=== PATIENT | male | born 1935 | race Caucasian/White ===

== ENCOUNTER 2016-09-06 19:23 | Observation (INO) | payer OTHER ==
[~2016-09-06] VITALS: Ht 172.7 cm; Wt 75.6 kg
[~2016-09-06 19:23] MED LIST: ADV25050 INH; ALEN70TA30 PO; ASPI81TA3 PO; ATOR80TA75 PO; CARV3.1260 PO; FURO20TA3 PO; MULT-552 PO; NIT4 SL; PANT40TA4 PO; PRED10TA PO; TAMS0.4C2 PO; TIOT18CA IH
[2016-09-06 20:05] LABS: ADD SCAN DIFF NO
[2016-09-06 20:06] LABS: BASOPHILS % 0.6 % (0.0-2.0); EOSINOPHILS # 0.1 10^3/ul (0.0-0.5); HEMATOCRIT 36.9 % (42.0-52.0); HEMOGLOBIN 11.7 g/dl (14.0-18.0); LYMPHOCYTES # 0.8 10^3/ul (0.8-2.9); LYMPHOCYTES % 16.3 % (15.0-51.0); MEAN CORPUSCULAR HEMOGLOBIN 29.4 pg (29.0-33.0); MEAN CORPUSCULAR HGB CONC 31.7 g/dl (32.0-37.0); MEAN CORPUSCULAR VOLUME 92.7 fl (82.0-101.0); MONOCYTE # 0.4 10^3/ul (0.3-0.9); MONOCYTES % 8.1 % (0.0-11.0); NEUTROPHIL # 3.7 10^3/ul (1.6-7.5); NEUTROPHILS % 72.6 % (39.0-77.0); PLATELET COUNT 120 10^3/UL (140-415); RED BLOOD COUNT 3.98 10^6/ul (4.70-6.10); RED CELL DISTRIBUTION WIDTH 14.2 % (11.5-14.5)
[2016-09-06 20:23] LABS: INR 1.05; PARTIAL THROMBOPLASTIN TIME 31.9 Sec (25.0-35.0); PROTIME 13.7 Sec (12.2-14.2); PT RATIO 1.1
[2016-09-06 20:27] LABS: ANION GAP 8 (8-16); BLOOD UREA NITROGEN 24 mg/dl (7-20); CALCIUM 9.6 mg/dl (8.4-10.2); CARBON DIOXIDE 34 mmol/L (21-31); CHLORIDE 104 mmol/L (97-110); CREATININE 1.04 mg/dl (0.61-1.24); GLUCOSE 128 mg/dl (70-220); POTASSIUM 4.3 mmol/L (3.5-5.1); SODIUM 142 mmol/L (135-144)
[2016-09-06] MEDS ORDERED: ASPIRIN 81 MG TAB PO ONE (20:30)
--- NOTE | 2016-09-06 20:36 | RADRPT ---
PROCEDURE: XR Chest. CLINICAL INDICATION: Chest pain TECHNIQUE: 2 frontal views of the chest were obtained COMPARISON: 02/13/2015 FINDINGS: The heart is not enlarged. Dual chamber cardiac pacemaker again seen. Calcification in the aortic arch. There is minimal prominence of the lung interstitium likely minimal chronic changes. There is no pleural effusion or pneumothorax. IMPRESSION: No acute disease. RPTAT: [facility]JES .Justin Lewis MD, MD Date Time Electronically viewed and signed by .Justin Lewis MD, on 09/06/2016 20:36 .S/
[2016-09-06 20:40] LABS: TROPONIN-I < 0.012 ng/ml (0.00-0.12)
[2016-09-06 21:05] LABS: ADD UMIC NO; UR BILIRUBIN (Dip) NEGATIVE (NEGATIVE); UR BLOOD (Dip) NEGATIVE (NEGATIVE); UR CLARITY CLEAR (CLEAR); UR COLOR LT. YELLOW (YELLOW); UR GLUCOSE (Dip) NEGATIVE (NEGATIVE); UR KETONES (Dip) NEGATIVE (NEGATIVE); UR LEUKOCYTE ESTERASE (Dip) NEGATIVE (NEGATIVE); UR NITRITE (Dip) NEGATIVE (NEGATIVE); UR TOTAL PROTEIN (Dip) NEGATIVE (NEGATIVE); UR UROBILINOGEN (Dip) 0.2 E.U./dL (0.1-1.0)
[2016-09-06] MEDS ORDERED: TAMS0.4C2 PO (21:09)
[2016-09-06] MEDS ORDERED: FURO20TA3 PO (21:09)
[2016-09-06] MEDS ORDERED: PANT40TA4 PO (21:10)
[2016-09-06] MEDS ORDERED: FINA5TAB4 PO (21:10)
[2016-09-06] MEDS ORDERED: AMIO200T2 PO (21:11)
[2016-09-06] MEDS ORDERED: MAGN400T28 PO (21:11)
[2016-09-06] MEDS ORDERED: CLOP75TA4 PO (21:12)
[2016-09-06] MEDS ORDERED: CARV3.1260 PO (21:13)
[2016-09-06] MEDS ORDERED: ASPI-664 PO (21:15)
[2016-09-06] MEDS ORDERED: BUDE6HFA INHALATION (21:15)
[2016-09-06] MEDS ORDERED: TIOT18CA INHALATION (21:16)
[2016-09-06] MEDS ORDERED: NIT4 SL (21:16)
[2016-09-06] MEDS ORDERED: SOD CHLORIDE 0.9% 250 ML IV STA (21:17)
[2016-09-06] MEDS ORDERED: MECLIZINE 12.5 MG TAB PO ONE (22:30)
[2016-09-06] MEDS ORDERED: CALCITONIN SALMON 400 UNITS INJ SC ONE (22:30)
[2016-09-06] MEDS ORDERED: ACETAMINOPHEN 325 MG TAB PO PRN ×2 (23:30)
[2016-09-06] MEDS ORDERED: NITROGLYCERIN (SL) 0.4 MG TAB SL PRN (23:30)
[2016-09-06] MEDS ORDERED: MAGNESIUM HYDROXIDE 30ML CUP PO PRN (23:30)
[2016-09-06] MEDS ORDERED: morphine 2 MG INJ IV PRN (23:30)
[2016-09-06] MEDS ORDERED: NACL 0.9% 3 ML SYG IV SCH (23:30)
[2016-09-06] MEDS ORDERED: ONDANSETRON 4 MG INJ IV PRN ×2 (23:30)
[2016-09-06] MEDS ORDERED: BISACODYL 10 MG SUPP PR PRN (23:30)
[2016-09-06] MEDS ORDERED: DOCUSATE SODIUM 100 MG CAP PO PRN (23:30)
[2016-09-06] MEDS ORDERED: ALBUTEROL/IPRATROPIUM (NEB) 3 ML AMP HHN PRN (23:30)
--- NOTE | 2016-09-06 23:51 | ERD ---
ER Documentation Chief Complaint Date/Time DATE: 09/06/16 TIME: 23:45 Chief Complaint weak/dizzy x 45 minutes, "feel like I'm going to " +orthostatics HPI 81-year-old male with a history of CAD, peripheral artery disease, pacemaker placement, and diabetes presenting with symptoms of feeling like he is going to . He states that he was eating dinner when he stood up and was walking around and suddenly felt like his whole body was about to shut down. He denies feeling any specific dizziness, chest pain, shortness of breath, diaphoresis, or focal weakness or numbness. He denies any associated headache or vision disturbance. He states the episode lasted a few minutes and self resolved after sitting. Then his symptoms started again at rest. Currently he feels back to his normal self. ROS All systems reviewed and are negative except as per history of present illness. Medications Home Meds Reported Medications Nitroglycerin* (Nitrostat*) 0.4 Mg Tab.subl, 0.4 MG SL Q5MIN Y for CHEST PAIN, BOTTLE 09/06/16 Tiotropium [place]* (Spiriva*) 18 Mcg Cap.w.dev, 1 CAP INHALATION DAILY, #30 CAP 09/06/16 Aspirin* (Aspirin* EC) 81 Mg Tablet.dr, 81 MG PO DAILY, TAB 09/06/16 Budesonide-Formoterol Fumarate* (Symbicort*) 160-4.5 Hfa.aer.ad, 2 PUFF INHALATION BID, #1 EACH 09/06/16 Carvedilol* (Carvedilol*) 3.125 Mg Tablet, 1.56 MG PO BID, #60 TAB TAKE 1/2 TABLET 09/06/16 Clopidogrel Bisulfate* (Clopidogrel Bisulfate*) 75 Mg Tablet, 75 MG PO DAILY, # 30 TAB 09/06/16 Magnesium Oxide* (Magnesium Oxide*) 400 Mg Tablet, 400 MG PO DAILY, TAB 09/06/16 Amiodarone Hcl* (Amiodarone Hcl*) 200 Mg Tablet, 200 MG PO DAILY, #30 TAB 09/06/16 Finasteride* (Finasteride*) 5 Mg Tablet, 5 MG PO DAILY, TAB 09/06/16 Pantoprazole* (Pantoprazole*) 40 Mg Tablet.dr, 40 MG PO AC BREAKFAST, TAB 09/06/16 Tamsulosin Hcl* (Tamsulosin Hcl*) 0.4 Mg Cap.er.24h, 0.4 MG PO BID, CAP 09/06/16 Furosemide* (Furosemide*) 20 Mg Tablet, 20 MG PO Q OTHER DAY, #60 TAB 09/06/16 Discontinued Reported Medications Multivitamins* (Once Daily*) 1 Tab Tablet, 1 TAB PO DAILY, TAB 02/13/15 Aspirin* (Aspirin* Chew) 81 Mg Tab.chew, 81 MG PO DAILY, TAB.CHEW 02/13/15 Carvedilol* (Carvedilol*) 3.125 Mg Tablet, 3.125 MG PO BID, TAB 02/13/15 Nitroglycerin* (Nitrostat*) 0.4 Mg Tab.subl, 0.4 MG SL Q5MIN Y for CHEST PAIN, BOTTLE 02/13/15 Alendronate Sodium* (Fosamax*) 70 Mg Tablet, 70 MG PO Q7D, TAB 02/13/15 Tiotropium [place]* (Spiriva*) 18 Mcg Cap.w.dev, 1 INH IH DAILY, EA 02/13/15 Salmeterol Xinaf/Fluticasone* (Advair*) 250-50 Diskus Inhaler, 1 INH INH BID, INH 02/13/15 Pantoprazole* (Pantoprazole*) 40 Mg Tablet.dr, 40 MG PO BID, TAB 02/13/15 Tamsulosin Hcl* (Tamsulosin Hcl*) 0.4 Mg Cap.er.24h, 0.8 MG PO HS, CAP 02/13/15 Atorvastatin* (Atorvastatin*) 80 Mg Tablet, 80 MG PO HS, TAB 02/13/15 Furosemide* (Furosemide*) 20 Mg Tablet, 20 MG PO DAILY, TAB 02/13/15 Discontinued Scripts Prednisone* (Prednisone*) 10 Mg Tab, 10 MG PO DAILY, #30 TAB Take four by mouth (40mg) every morning x 3 days, then 3 (30mg) x 3 days, then 2 (20mg) x 3 days, then 1 (10mg) x 3 days, then discontinue Prov:TREMAINE COBIAN M.D. 02/15/15 Allergies Allergies: Coded Allergies: No Known Allergy (Unverified , 09/06/16) PMhx/Soc History of Surgery: Yes (lumbar surery, hernia repair, pacemaker placement) Anesthesia Reaction: No Hx Neurological Disorder: No Hx Respiratory Disorders: Yes (copd) Hx Cardiac Disorders: Yes (afib, chf, cad) Hx Psychiatric Problems: No Hx Miscellaneous Medical Probl: Yes (bph, pad) Hx Alcohol Use: No Hx Substance Use: No Hx Tobacco Use: No Smoking Status: Never smoker FmHx Family History: No diabetes Physical Exam Vitals Vital Signs Date Time Temp Pulse Resp B/P Pulse Ox O2 Delivery O2 Flow Rate FiO2 09/06/16 22:12 50 17 133/70 100 Nasal Cannula 4.0 09/06/16 20:52 50 15 139/85 98 Nasal Cannula 2.0 09/06/16 19:45 Nasal Cannula 4 09/06/16 19:31 98.1 60 18 114/73 100 Physical Exam Const: Well-appearing, no distress, nontoxic Head: Atraumatic Eyes: Normal Conjunctiva, PERRLA, EOMI ENT: Normal External Ears, Nose and Mouth. Poor dentition Neck: Full range of motion. No JVD. No meningismus. Resp: Clear to auscultation bilaterally Cardio: Regular rate and rhythm, no murmurs. 2+ radial pulses bilaterally. 1+ DP and PT pulses in bilateral lower extremities. Abd: Soft, non tender, non distended. Normal bowel sounds Skin: No petechiae or rashes Back: No midline or flank tenderness Ext: No cyanosis, or edema Neur: Awake and alert and oriented 3, cranial nerves intact, strength and sensations intact in all 4 extremities, normal study gait Psych: Normal Mood and Affect Result Diagram: 09/06/16195409/06/161954 Results 24 hrs Laboratory Tests Test 09/06/16 19:55 09/06/16 20:45 White Blood Count 5.010^3/ul Red Blood Count 3.9810^6/ul Hemoglobin 11.7g/dl Hematocrit 36.9% Mean Corpuscular Volume 92.7fl Mean Corpuscular Hemoglobin 29.4pg Mean Corpuscular Hemoglobin Concent 31.7g/dl Red Cell Distribution Width 14.2% Platelet Count 02380^3/UL Mean Platelet Volume 11.0fl Neutrophils % 72.6% Lymphocytes % 16.3% Monocytes % 8.1% Eosinophils % 2.0% Basophils % 0.6% Nucleated Red Blood Cells % 0.0/100WBC Neutrophils # 3.710^3/ul Lymphocytes # 0.810^3/ul Monocytes # 0.410^3/ul Eosinophils # 0.110^3/ul Basophils # 0.010^3/ul Nucleated Red Blood Cells # 0.010^3/ul Prothrombin Time 13.7Sec Prothrombin Time Ratio 1.1 INR International Normalized Ratio 1.05 Activated Partial Thromboplast Time 31.9Sec Sodium Level 142mmol/L Potassium Level 4.3mmol/L Chloride Level 104mmol/L Carbon Dioxide Level 34mmol/L Anion Gap 8 Blood Urea Nitrogen 24mg/dl Creatinine 1.04mg/dl Glucose Level 128mg/dl Calcium Level 9.6mg/dl Troponin I < 0.012ng/ml Urine Color LT. YELLOW Urine Clarity CLEAR Urine pH 5.5 Urine Specific [place] 1.010 Urine Ketones NEGATIVE Urine Nitrite NEGATIVE Urine Bilirubin NEGATIVE Urine Urobilinogen 0.2 E.U./dL Urine Leukocyte Esterase NEGATIVE Urine Hemoglobin NEGATIVE Urine Glucose NEGATIVE% Urine Total Protein NEGATIVE Current Medications Medications (Trade) Dose Ordered Sig/Ilana Route PRN Reason Start Time Stop Time Status Last Admin Dose Admin Aspirin 162 mg 162 mg ONCE ONCE PO 09/06/16 20:30 09/06/16 20:31 DC 09/06/16 20:36 Sodium Chloride (NS) 250 ml @ 250 mls/hr Q1H STAT IV 09/06/16 21:17 09/06/16 22:16 DC 09/06/16 21:24 Meclizine HCl (Antivert) 25 mg ONCE ONCE PO 09/06/16 22:30 09/06/16 22:31 DC 09/06/16 22:25 Calcitonin [place] (Miacalcin Inj) 300 units BID ONCE SC 09/06/16 22:30 09/06/16 22:30 DC Amiodarone HCl (Cordarone) 200 mg DAILY PO 09/07/16 09:00 UNV Aspirin (Halfprin) 81 mg DAILY PO 09/07/16 09:00 UNV Carvedilol (Coreg) 1.56 mg BID PO 09/07/16 09:00 UNV Clopidogrel Bisulfate (plaVIX) 75 mg DAILY PO 09/07/16 09:00 UNV Finasteride (Proscar) 5 mg DAILY PO 09/07/16 09:00 UNV Magnesium Oxide (Mag-Ox 400) 400 mg DAILY PO 09/07/16 09:00 UNV Pantoprazole (Protonix Tab) 40 mg AC BREAKFAST PO 09/07/16 07:00 UNV Tamsulosin HCl (Flomax) 0.4 mg BID PO 09/07/16 09:00 UNV Miscellaneous Information 2 puff BID INHALATION 09/07/16 09:00 UNV IV Flush (NS 3 ml) 3 ml PER PROTOCOL IV 09/06/16 23:30 UNV Ondansetron HCl (Zofran Inj) 4 mg Q6H PRN IV NAUSEA AND/OR VOMITING 09/06/16 23:30 UNV Nitroglycerin (Nitroglycerin (Sl Tab) 0.4 Mg) 1 tab Q5M PRN SL CHEST PAIN 09/06/16 23:30 UNV Acetaminophen (Tylenol Tab) 650 mg Q6H PRN PO PAIN LEVEL 1-3 OR FEVER 09/06/16 23:30 UNV Acetaminophen/ Hydrocodone Bitart ([place] (5/325)) 1 tab Q6H PRN PO PAIN LEVEL 4-6 09/06/16 23:30 UNV Morphine Sulfate (morphine) 2 mg Q4H PRN IV PAIN LEVEL 7-10 09/06/16 23:30 UNV Docusate Sodium (Colace) 100 mg Q12H PRN PO CONSTIPATION 09/06/16 23:30 UNV Magnesium Hydroxide (Milk Of Mag) 30 ml DAILY PRN PO CONSTIPATION 09/06/16 23:30 UNV Bisacodyl (Dulcolax Supp) 10 mg DAILY PRN [place] CONSTIPATION 09/06/16 23:30 UNV Famotidine (Pepcid) 20 mg Q12 PO 09/07/16 09:00 UNV Ondansetron HCl (Zofran Inj) 4 mg ER BRIDGE PRN IV NAUSEA AND/OR VOMITING 09/06/16 23:30 09/07/16 23:29 Acetaminophen (Tylenol Tab) 650 mg ER BRIDGE PRN PO MILD PAIN/FEVER 09/06/16 23:30 09/07/16 23:29 Albuterol/ Ipratropium (Duoneb) 3 ml Q4H RESP THERAPY PRN HHN SHORTNESS OF BREATH 09/06/16 23:30 UNV Procedures/MDM EKG: Rate/Rhythm: Atrial paced beats QRS, ST, T-waves: Right bundle branch block, no changes consistent w/ acute ischemia Impression: No evidence of ischemia or arrhythmia CT head pending Chest x-ray shows no acute abnormalities Labs show no significant abnormalities MDM The patient presented after a near syncopal episode. Differential includes but is not limited to cardiac arrhythmia or ischemia, pulmonary embolism, vasovagal syncope, situational syncope, dehydration with orthostatic hypotension , hemorrhage, sepsis, stroke ,ICH, hypoglycemia. I have a low suspicion for seizure, stroke, or serious head injury. Blood sugar was normal. EKG showed no significant arrhythmia or ischemia. Labs were unremarkable. Chest Xray showed no acute abnormalities. There is no evidence of pacemaker malfunction. However , given the patients medical history and risk factors, an occult etiology cannot be ruled out. I do not believe patient is safe for discharge and will need admission for telemetry monitoring and further workup. CT head was ordered per the admitting doctors request and is pending Accepting Care Team: Current data and ongoing care discussed. Time: Time of admission Primary Provider: Keke Consulting: none Outstanding Data: CT head Departure Diagnosis: Primary Impression: Acute weakness Condition: Fair ASHWIN KYLE MD Sep 06, 2016 23:51
--- NOTE | 2016-09-06 23:57 | RADRPT ---
AMENDMENT: 09/06/2016 11:58:33 PM Samantha Hadley M.D Addendum: Mild chronic microvascular ischemic disease and age appropriate volume loss . RPTAT: [facility] [place]EDURE: CT Brain without contrast. CLINICAL INDICATION: Dizziness TECHNIQUE: A CT of the brain was performed on a GE [id number] 64-slice CT scanner utilizing axial imaging from the skull base through the vertex without IV contrast. Multiplanar reformatted images were made. Images were reviewed on a PACS workstation. The CTDIvol is 43.77 mGy and the DLP is 720 .23 mGycm. One of the following 3 dose reduction techniques were used: Automated exposure control; adjustment of the mA and/or kV according to patient size; or use of iterative reconstruction technique. COMPARISON: None FINDINGS: There is no intracranial hemorrhage, mass effect, or midline shift. No extra-axial fluid collection is seen. The ventricles and sulci are age appropriate. Mild diffuse volume loss is present. Mild vascular calcifications are present of the intracranial internal mild decreased attenuation is prese nt in the bilateral subcortical white matter, bilateral centrum semiovale, and bilateral compatible with mild chronic microvascular ischemic disease. The visualized scalp and calvarium are normal. The bilateral orbits demonstrate prior lens replacem ent. The bilateral paranasal sinuses demonstrate mild chronic mucoperiosteal disease in the bilater al ethmoid maxillary and frontal sinuses. The bilateral mastoid air cells are clear. IMPRESSION: 1. No evidence of acute intracranial hemorrhage, infarcts, or acute intracranial pathology. 2. Mild vascular ischemic disease and age appropriate volume loss. 3. No evidence for acute intracranial pathology. .Samantha Hadley MD, MD Date Time Electronically viewed and signed by .Samantha Hadley MD, MD on 09/06/2016 23:58 .C/
[2016-09-07] VITALS (14 sets, daily range): BP systolic 112–135; BP diastolic 57–77; PULSE 49–60; RESP 16–20; Ht 172.7 cm; Wt 75.6 kg
[2016-09-07 03:45] LABS: CREATINE KINASE 30 IU/L (23-200)
[2016-09-07 03:57] LABS: CK-MB 1.28 ng/ml (0.0-2.4); TROPONIN-I < 0.012 ng/ml (0.00-0.12)
[2016-09-07 06:53] LABS: ADD SCAN DIFF NO
[2016-09-07 06:55] LABS: ABNORMAL IP MESSAGE 1; BASOPHILS % 0.4 % (0.0-2.0); EOSINOPHILS % 0.4 % (0.0-7.0); HEMOGLOBIN 10.9 g/dl (14.0-18.0); LYMPHOCYTES # 0.9 10^3/ul (0.8-2.9); LYMPHOCYTES % 15.5 % (15.0-51.0); MEAN CORPUSCULAR HEMOGLOBIN 28.8 pg (29.0-33.0); MEAN CORPUSCULAR HGB CONC 30.3 g/dl (32.0-37.0); MEAN PLATELET VOLUME 11.7 fl (7.4-10.4); MONOCYTE # 0.4 10^3/ul (0.3-0.9); MONOCYTES % 6.4 % (0.0-11.0); NEUTROPHIL # 4.2 10^3/ul (1.6-7.5); NEUTROPHILS % 76.9 % (39.0-77.0); PLATELET COUNT 97 10^3/UL (140-415); RED BLOOD COUNT 3.79 10^6/ul (4.70-6.10); RED CELL DISTRIBUTION WIDTH 14.1 % (11.5-14.5); WHITE BLOOD COUNT 5.5 10^3/ul (4.8-10.8)
[2016-09-07] MEDS: PANTOPRAZOLE (EC) 40 MG TAB PO SCH (07:21)
[2016-09-07 07:46] LABS: CREATINE KINASE 27 IU/L (23-200)
[2016-09-07 08:05] LABS: CK-MB 1.57 ng/ml (0.0-2.4); TROPONIN-I < 0.012 ng/ml (0.00-0.12)
[2016-09-07 08:07] LABS: ALBUMIN 3.9 g/dl (3.3-4.9); ALBUMIN/GLOBULIN RATIO 1.62; BILIRUBIN,INDIRECT 0.2 mg/dl (0-1.1); BILIRUBIN,TOTAL 0.2 mg/dl (0.2-1.3); CALCIUM 9.2 mg/dl (8.4-10.2); CREATININE 0.92 mg/dl (0.61-1.24); MAGNESIUM 2.2 mg/dl (1.7-2.5); POTASSIUM 4.1 mmol/L (3.5-5.1); TOTAL PROTEIN 6.3 g/dl (6.1-8.1)
[2016-09-07] MEDS ORDERED: AMIODARONE 200 MG TAB PO SCH (09:00)
[2016-09-07] MEDS: MAGNESIUM OXIDE 400 MG TAB PO SCH (09:11)
[2016-09-07] MEDS: TAMSULOSIN (SR) 0.4 MG CAP PO SCH ×2 (09:11→20:51)
[2016-09-07] MEDS: FAMOTIDINE 20 MG TAB PO SCH ×2 (09:11→20:51)
[2016-09-07] MEDS: FINASTERIDE 5 MG TAB PO SCH (09:11)
[2016-09-07] MEDS: CLOPIDOGREL 75 MG TAB PO SCH (09:11)
[2016-09-07] MEDS: ASPIRIN (EC) 81 MG TAB PO SCH (09:11)
[2016-09-07] MEDS: SALMETEROL/FLUTICASONE 250/50 INHA INH SCH ×2 (10:33→20:51)
--- NOTE | 2016-09-07 10:56 | RADRPT ---
PROCEDURE: Carotid ultrasound CLINICAL INDICATION: Syncope, carotid bruits TECHNIQUE: Ba scale, color doppler, spectral doppler ultrasound of the bilateral carotid and ifrah tebral arteries. This study indirectly references the measurement of the distal ICA diameter as the denominator for s tenosis measurement. Validated velocity measurements with angiographic measurements, velocity criter ia are extrapolated from diameter data as defined by: *Cartoid artery stenosis: ba-scale and Doppl er US diagnosis. Society of Radiologists in Ultrasound Consensus Conference. Radiology 2003; 229: 34 0-346. SRU Consensus Conference Criteria for the Diagnosis of Carotid Artery Stenosis* Degree of Stenosis, % ICA PSV, cm/sec Plaque Estimate, % ICA/CCA PSV Ratio Normal <125 None <2.0 <50 <125 <50 <2.0 50 69 125-230 >50 2.0-4.0 >70 but less than near occlusion >230 >50 <4.0 Near occlusion High, low, or undetectable Visible Variable Total occlusion Undetectable Visible, no detectable lumen Not applicable COMPARISON: No prior studies are available for comparison. FINDINGS: Location Right CCA90 cm/sec Prox ICA 64 cm/sec Mid ICA62 cm/sec Dist ICA92 cm/sec ECA62 cm/sec ICA/CCA1.2 Left CCA72 cm/sec Prox ICA 83 cm/sec Mid ICA70 cm/sec Dist ICA71 cm/sec ZQK990 cm/sec ICA/CCA1.2 Plaque burden: Minimal plaque involving both internal carotid arteries without significant stenosis. Antegrade flow is seen within the vertebral arteries bilaterally. IMPRESSION: No evidence of a hemodynamically significant carotid stenosis. RPTAT: AADD .Armin Collins MD, MD Date Time Electronically viewed and signed by .Armin Collins MD, MD on 09/07/2016 10:56 .B/
--- NOTE | 2016-09-07 16:13 | HP ---
DATE OF ADMISSION: 09/06/2016 PRIMARY CARE PHYSICIAN: Dr. Page OUTPATIENT HEEL SEAM RUBBER: Dr. Prieto. CHIEF COMPLAINT ON ADMISSION: Feeling faint. HISTORY OF PRESENT ILLNESS: This is an 81-year-old male with history of cardiomyopathy and congesti ve heart failure, last ejection fraction approximately 25%, COPD and emphysema, benign prostatic hyp ertrophy, hyperlipidemia, peripheral vascular disease, osteoporosis, nonobstructive mild coronary ar venus disease status post angiogram in 2014, sick sinus syndrome, status post pacemaker who presented to the emergency department with complaint of occasionally feeling faint. The patient reports that this started yesterday. He would just occasionally feel like he is almost sedated with the onset o f generalized weakness. His lower extremity became very weak. It would last for a few seconds and then pass. He denies chest pain. He denies nausea, vomiting. He denies blurry vision. He denies syncopal episode or loss of consciousness. He keeps saying that he feels like he is "dying." He oden d a similar episode today while on telemetry, and at that time that, when the nurse was doing his as sessment asked telemetry, the patient was noted to have a heart rate down to 49 with no pacer spikes . The patient also reports that this past Monday he had an oral procedure and is on penicillin sinc e then. He has no previous allergy to penicillin as far as we know. In the emergency department, matt brunson had a CAT scan of the head which was negative for acute findings. Subsequently, carotid ultrasoun d was done which was negative. He has been monitored on telemetry. The only concern is when his bl ood pressure does go as low as 49 there is no pacer spikes. The patient is much more comfortable cu rrently. He has been also complaining on and off of his lips being numb which most likely has to do with his gum disease and misfit dentures. Cardiology will be seeing the patient. ALLERGIES: NO KNOWN ALLERGIES. PAST MEDICAL HISTORY: 1. Nonobstructive mild coronary artery disease status post angiogram in September of 2014. 2. Cardiomyopathy, congestive heart failure, chronic systolic dysfunction with EF of 25%. 3. Chronic obstructive pulmonary disease and emphysema. 4. Benign prostatic hypertrophy. 5. Hyperlipidemia. 6. Peripheral vascular disease. 7. Osteoporosis. 8. Sick sinus syndrome status post pacemaker placement. PAST SURGICAL HISTORY: 1. Status post pacemaker placement approximately 6 years ago. 2. Status post lumbar laminectomy x3. 3. Status post bilateral hernia repair, inguinal, x2. 4. Status post tonsillectomy remotely. 5. Status post vein stripping, right lower extremity. SOCIAL HISTORY: The patient lives with his . He does not drink alcohol. He quit smoking 30 ye ars ago. He smoked for 15 years, roughly a pack a day. OUTPATIENT MEDICATIONS: 1. Flomax 0.4 mg p.o. b.i.d. 2. Spiriva 1 cap inhaled daily. 3. Plavix 75 mg p.o. daily. 4. Amiodarone 200 mg p.o. daily. 5. Carvedilol 1.56 p.o. b.i.d. 6. Nitrostat 0.4 mg sublingual every 5 p.r.n. chest pain. 7. Aspirin 81 mg p.o. daily. 8. Furosemide 20 mg p.o. every other day. 9. Symbicort 160/4.5, two puffs inhaled twice daily. 10. Magnesium oxide 400 mg p.o. daily. 11. Pantoprazole 40 mg p.o. q. a.c. 12. Finasteride 5 mg p.o. daily. 13. Penicillin 500 mg p.o. q. 6 hours for a total of 20 days from what the patient is reporting. Matt e did start it approximately 5 days ago. REVIEW OF SYSTEMS: As per HPI. PHYSICAL EXAMINATION: VITAL SIGNS: Temperature is 98.4, heart rate has been varying around 49 so far, respiratory rate of 19, blood pressure 116/63 while the patient is lying, and he is satting 97% on 2 liters nasal cannu la. Of note, the patient does use nasal cannula at night. GENERAL: He is alert and oriented x4. He is in no acute distress currently. HEENT: Pupils are equally round and reactive to light. Extraocular muscles are intact. Anicteric sclerae. NECK: No JVD, no thyromegaly noted. NEUROLOGIC: The patient does complain of lip numbness on and off. HEART: Regular rate and rhythm. No murmur, rubs, or gallops. LUNGS: Clear to auscultation bilaterally. ABDOMEN: Soft, nontender, nondistended. Bowel sounds are present. EXTREMITIES: No edema, clubbing, or cyanosis. CHEST WALL: The pacemaker is in place. LABORATORY DATA: White blood cell count is 5.5, hemoglobin 10.9, hematocrit 36.0, platelet count of 97. Chemistry with a sodium of 144, potassium 4.1, chloride 106, bicarbonate 34, BUN 8, creatinine 0.92, glucose of 124, calcium of 9.2. Total bilirubin 2.2, AST 16, ALT 32, alkaline phosphatase of 47. Troponin negative x3. TSH is pending. Free T4 is within normal. INR is 1.05. PT of 13.7, P TT of 31.9. Urinalysis is negative. RADIOLOGICAL DATA: 1. CAT scan of the brain is stable with no acute pathology. 2. Chest x-ray: No acute disease. 3. Carotid Doppler shows no evidence of hemodynamically significant carotid stenosis. EKG did show an electronic atrial pacer on admission, but on telemetry, the patient did have heart r ate as low as 40s with no pacer spikes. ASSESSMENT AND PLAN: This is an 81-year-old male with 1. Possibly presyncopal episodes. It is unclear if this is due to arrhythmia versus just orthostas is. I will have his orthostatics checked again. They were negative early this morning. His pacema ker has been interrogated. We will await cardiology evaluation. His amiodarone has been held along with the carvedilol for now. Cardiac enzymes are negative x3. We will obtain an echocardiogram if cardiology agrees. Continue to monitor on telemetry overnight. 2. Nonobstructive coronary artery disease, apparently confirmed on angiogram in 2014. Continue cur rent medications; however, his amiodarone and his carvedilol are on hold for now. 3. Cardiomyopathy, ejection fraction of 25%. Continue current medications, again with holding para meters. 4. Sick sinus syndrome, status post pacemaker. Monitor on telemetry. We will address bradycardia with cardiology. 5. Chronic obstructive pulmonary disease. Continue outpatient medication along with nebulizer haider tment as needed. 6. Peripheral vascular disease. Continue antiplatelet therapy. Carotid Dopplers are negative. 7. Benign prostatic hypertrophy. Continue medication. 8. Hyperlipidemia. Continue medications. 9. Osteoporosis. Continue Fosamax. 10. Status post oral surgery. We will continue his penicillin 500 mg IV q. 6 hours. 11. Prophylaxis: Sequential compression devices to lower extremities for DVT prophylaxis, and Pepc id for GI prophylaxis. DISPOSITION: Awaiting final cardiology recommendation, and we will monitor the patient another julian davis Dictated By: REGINALD RODRIGUEZ/TJ Conf#: [id number] DID#: [id number]
[2016-09-07] MEDS: PENICILLIN V K 250 MG TAB PO SCH (18:51)
--- NOTE | 2016-09-07 23:32 | CONS ---
Date/Time of Note Date/Time of Note DATE: 09/07/16 TIME: 23:23 Assessment/Plan Assessment/Plan Additional Assessment/Plan "Not feeling well" CM Mild CAD SSS with PPM -PPM interrogation with appropriate functioning PPM, predominately a. paced. Serial troponins negative, no significant abnormalities seen on tele. Patient feeling better. Will cont tele monitoring. Consultation Date/Type/Reason Admit Date/Time Sep 06, 2016 at 23:12 Type of Consultation: cv Reason for Consultation cardiology evaluation Hx of Present Illness This is an 81 y/o M with PMHX of CAD, CM , PPM who presents with symptoms of fatigue and "not feeling well". Pt states he feels a "wave" coming over him. He denies cp, sob, palpitations, dizziness at rest or with activity. He feels better since admission. He is concerned there is something wrong with his PPM. 12 point ROS was performed with all pertinent +/- mentioned above and all else is - Past Medical History Medical History: congestive heart failure, coronary artery disease, hypertension Past Surgical History PPM Hernia repair Family History Significant Family History: no pertinent family hx Social History Smoking Status: Never smoker Exam/Review of Systems Vital Signs Vitals Vital Signs Date Time Temp Pulse Resp B/P Pulse Ox O2 Delivery O2 Flow Rate FiO2 09/07/16 23:10 96.8 50 16 112/57 94 09/07/16 20:00 Nasal Cannula 2.0 Intake and Output 09/06/16 09/06/16 09/07/16 15:00 23:00 07:00 Intake Total 490 ml Output Total 150 ml Balance -150 ml 490 ml Exam nad Constitutional: alert, oriented, well developed Head: normocephalic Neck: supple Respiratory: clear to auscultation, normal air movement Cardiovascular: other (s1s2), regular rate and rhythm Gastrointestinal: bowel sounds, non-tender, soft Extremities: other (no edmea) Results Result Diagram: 09/07/16 0545 09/07/16 0545 Results 24 hrs Laboratory Tests Test 09/07/16 00:02 09/07/16 02:22 09/07/16 05:45 09/07/16 07:45 Bedside Glucose 132 Creatine Kinase 30 27 Creatine Kinase Index 4.3 5.8 Creatinine Kinase MB (Mass) 1.28 1.57 Troponin I < 0.012 < 0.012 White Blood Count 5.5 Red Blood Count 3.79 L Hemoglobin 10.9 L Hematocrit 36.0 L Mean Corpuscular Volume 95.0 Mean Corpuscular Hemoglobin 28.8 L Mean Corpuscular Hemoglobin Concent 30.3 L Red Cell Distribution Width 14.1 Platelet Count 97 L Mean Platelet Volume 11.7 H Neutrophils % 76.9 Lymphocytes % 15.5 Monocytes % 6.4 Eosinophils % 0.4 Basophils % 0.4 Nucleated Red Blood Cells % 0.0 Neutrophils # 4.2 Lymphocytes # 0.9 Monocytes # 0.4 Eosinophils # 0.0 Basophils # 0.0 Nucleated Red Blood Cells # 0.0 Sodium Level 144 Potassium Level 4.1 Chloride Level 106 Carbon Dioxide Level 34 H Anion Gap 8 Blood Urea Nitrogen 22 H Creatinine 0.92 Glucose Level 124 Calcium Level 9.2 Magnesium Level 2.2 Total Bilirubin 0.2 Direct Bilirubin 0.00 Indirect Bilirubin 0.2 Aspartate Amino Transf (AST/SGOT) 16 Alanine Aminotransferase (ALT/SGPT) 32 Alkaline Phosphatase 47 Total Protein 6.3 Albumin 3.9 Globulin 2.40 Albumin/Globulin Ratio 1.62 Thyroid Stimulating Hormone (TSH) Pending Medications Medications Current Medications Aspirin (Halfprin) 81 mg DAILY PO Last administered on 09/07/16 09:11; Admin Dose 81 MG; Start 09/07/16 at 09:00 Clopidogrel Bisulfate (plaVIX) 75 mg DAILY PO Last administered on 09/07/16 09 :11; Admin Dose 75 MG; Start 09/07/16 at 09:00 Finasteride (Proscar) 5 mg DAILY PO Last administered on 09/07/16 09:11; Admin Dose 5 MG; Start 09/07/16 at 09:00 Magnesium Oxide (Mag-Ox 400) 400 mg DAILY PO Last administered on 09/07/16 09: 11; Admin Dose 400 MG; Start 09/07/16 at 09:00 Tamsulosin HCl (Flomax) 0.4 mg BID PO Last administered on 09/07/16 20:51; Admin Dose 0.4 MG; Start 09/07/16 at 09:00 Salmeterol Xinafoate/ Fluticasone (Advair 250/50 Diskus) 1 inh BID INH Last administered on 09/07/16 20:51; Admin Dose 1 INH; Start 09/07/16 at 09:00 Ondansetron HCl (Zofran Inj) 4 mg Q6H PRN IV NAUSEA AND/OR VOMITING; Start at 23:30 Nitroglycerin (Nitroglycerin (Sl Tab) 0.4 Mg) 1 tab Q5M PRN SL CHEST PAIN; Start 09/06/16 at 23:30 Acetaminophen (Tylenol Tab) 650 mg Q6H PRN PO PAIN LEVEL 1-3 OR FEVER Last administered on 09/07/16 20:54; Admin Dose 650 MG; Start 09/06/16 at 23:30 Acetaminophen/ Hydrocodone Bitart ([place] (5/325)) 1 tab Q6H PRN PO PAIN LEVEL 4 -6; Start 09/06/16 at 23:30 Morphine Sulfate (morphine) 2 mg Q4H PRN IV PAIN LEVEL 7-10; Start 09/06/16 at 23:30 Docusate Sodium (Colace) 100 mg Q12H PRN PO CONSTIPATION; Start 09/06/16 at 23: 30 Magnesium Hydroxide (Milk Of Mag) 30 ml DAILY PRN PO CONSTIPATION; Start at 23:30 Bisacodyl (Dulcolax Supp) 10 mg DAILY PRN [place] CONSTIPATION; Start 09/06/16 at 23 :30 Famotidine (Pepcid) 20 mg Q12 PO Last administered on 09/07/16 20:51; Admin Dose 20 MG; Start 09/07/16 at 09:00 Penicillin V Potassium (Penicillin V K) 500 mg Q6 PO Last administered on 18:51; Admin Dose 500 MG; Start 09/07/16 at 18:00 Procedures Procedures ecg a paced tele with lowest HR high 40's John Paul Aldana DO Sep 07, 2016 23:32
[2016-09-08] VITALS (9 sets, daily range): BP systolic 106–117; BP diastolic 53–62; PULSE 49–60; RESP 18–20
[2016-09-08] MEDS: PENICILLIN V K 250 MG TAB PO SCH ×4 (00:24→17:38)
[2016-09-08] MEDS: PANTOPRAZOLE (EC) 40 MG TAB PO SCH (06:02)
[2016-09-08 07:13] LABS: ADD SCAN DIFF NO
[2016-09-08 07:15] LABS: BASOPHILS % 0.4 % (0.0-2.0); EOSINOPHILS # 0.1 10^3/ul (0.0-0.5); HEMATOCRIT 36.6 % (42.0-52.0); LYMPHOCYTES # 0.9 10^3/ul (0.8-2.9); LYMPHOCYTES % 16.5 % (15.0-51.0); MEAN CORPUSCULAR HEMOGLOBIN 28.9 pg (29.0-33.0); MEAN CORPUSCULAR HGB CONC 30.1 g/dl (32.0-37.0); MEAN CORPUSCULAR VOLUME 96.3 fl (82.0-101.0); MEAN PLATELET VOLUME 11.9 fl (7.4-10.4); MONOCYTE # 0.4 10^3/ul (0.3-0.9); MONOCYTES % 6.5 % (0.0-11.0); NEUTROPHIL # 4.1 10^3/ul (1.6-7.5); NEUTROPHILS % 74.2 % (39.0-77.0); PLATELET COUNT 107 10^3/UL (140-415); RED CELL DISTRIBUTION WIDTH 13.9 % (11.5-14.5); WHITE BLOOD COUNT 5.5 10^3/ul (4.8-10.8)
[2016-09-08 07:39] LABS: CALCIUM 9.4 mg/dl (8.4-10.2); CREATININE 0.91 mg/dl (0.61-1.24); POTASSIUM 4.5 mmol/L (3.5-5.1)
[2016-09-08 07:40] LABS: MAGNESIUM 2.2 mg/dl (1.7-2.5); PHOSPHORUS 3.6 mg/dl (2.5-4.9)
[2016-09-08] MEDS: ASPIRIN (EC) 81 MG TAB PO SCH (08:06)
[2016-09-08] MEDS: SALMETEROL/FLUTICASONE 250/50 INHA INH SCH (08:06)
[2016-09-08] MEDS: FINASTERIDE 5 MG TAB PO SCH (08:07)
[2016-09-08] MEDS: TAMSULOSIN (SR) 0.4 MG CAP PO SCH (08:07)
[2016-09-08] MEDS: CLOPIDOGREL 75 MG TAB PO SCH (08:07)
[2016-09-08] MEDS: HYDROCODONE/APAP (5/325) TAB PO PRN ×2 (08:07→16:53)
[2016-09-08] MEDS: MAGNESIUM OXIDE 400 MG TAB PO SCH (08:07)
[2016-09-08] MEDS: FAMOTIDINE 20 MG TAB PO SCH (08:07)
[2016-09-08 14:23] LABS: THYROID STIMULATING HORMONE 0.146 MIU/L (0.465-4.680)
--- NOTE | 2016-09-08 14:35 | CONS ---
Date/Time of Note Date/Time of Note DATE: 09/08/16 TIME: 14:33 Assessment/Plan Assessment/Plan Additional Assessment/Plan "Not feeling well" CM Mild CAD SSS with PPM Abnormal TSH -Telemetry reviewed with no significant bradycardia seen. As mentioned pacemaker was interrogated and working appropriately. Of note, patient with low TSH. The etiology of his symptoms do not appear cardiac at the current time. Consultation Date/Type/Reason Admit Date/Time Sep 06, 2016 at 23:12 Initial Consult Date Type of Consultation: cv 24 HR Interval Summary Free Text/Dictation Patient denies shortness of breath, chest pain, dizziness or palpitations. Complaining of headache. Exam/Review of Systems Vital Signs Vitals Vital Signs Date Time Temp Pulse Resp B/P Pulse Ox O2 Delivery O2 Flow Rate FiO2 09/08/16 14:14 Nasal Cannula 2.0 09/08/16 12:26 50 09/08/16 11:15 98.0 20 106/53 98 Intake and Output 09/07/16 09/07/16 09/08/16 14:59 22:59 06:59 Intake Total 360 ml Output Total 575 ml 850 ml Balance -215 ml -850 ml Exam No apparent distress Constitutional: alert, oriented Head: normocephalic Neck: supple Respiratory: clear to auscultation, normal air movement Cardiovascular: other (S1-S2 heard), regular rate and rhythm Gastrointestinal: bowel sounds, non-tender, soft Extremities: other (No edema) Results Result Diagram: 09/08/16 0600 09/08/16 0600 Results 24 hrs Laboratory Tests Test 09/08/16 06:00 White Blood Count 5.5 Red Blood Count 3.80 L Hemoglobin 11.0 L Hematocrit 36.6 L Mean Corpuscular Volume 96.3 Mean Corpuscular Hemoglobin 28.9 L Mean Corpuscular Hemoglobin Concent 30.1 L Red Cell Distribution Width 13.9 Platelet Count 107 L Mean Platelet Volume 11.9 H Neutrophils % 74.2 Lymphocytes % 16.5 Monocytes % 6.5 Eosinophils % 2.0 Basophils % 0.4 Nucleated Red Blood Cells % 0.0 Neutrophils # 4.1 Lymphocytes # 0.9 Monocytes # 0.4 Eosinophils # 0.1 Basophils # 0.0 Nucleated Red Blood Cells # 0.0 Sodium Level 142 Potassium Level 4.5 Chloride Level 104 Carbon Dioxide Level 36 H Anion Gap 7 L Blood Urea Nitrogen 17 Creatinine 0.91 Glucose Level 104 Calcium Level 9.4 Phosphorus Level 3.6 Magnesium Level 2.2 Medications Medications Current Medications Aspirin (Halfprin) 81 mg DAILY PO Last administered on 09/08/16 08:06; Admin Dose 81 MG; Start 09/07/16 at 09:00 Clopidogrel Bisulfate (plaVIX) 75 mg DAILY PO Last administered on 09/08/16 08 :07; Admin Dose 75 MG; Start 09/07/16 at 09:00 Finasteride (Proscar) 5 mg DAILY PO Last administered on 09/08/16 08:07; Admin Dose 5 MG; Start 09/07/16 at 09:00 Magnesium Oxide (Mag-Ox 400) 400 mg DAILY PO Last administered on 09/08/16 08: 07; Admin Dose 400 MG; Start 09/07/16 at 09:00 Tamsulosin HCl (Flomax) 0.4 mg BID PO Last administered on 09/08/16 08:07; Admin Dose 0.4 MG; Start 09/07/16 at 09:00 Salmeterol Xinafoate/ Fluticasone (Advair 250/50 Diskus) 1 inh BID INH Last administered on 09/08/16 08:06; Admin Dose 1 INH; Start 09/07/16 at 09:00 Ondansetron HCl (Zofran Inj) 4 mg Q6H PRN IV NAUSEA AND/OR VOMITING; Start at 23:30 Nitroglycerin (Nitroglycerin (Sl Tab) 0.4 Mg) 1 tab Q5M PRN SL CHEST PAIN; Start 09/06/16 at 23:30 Acetaminophen (Tylenol Tab) 650 mg Q6H PRN PO PAIN LEVEL 1-3 OR FEVER Last administered on 09/07/16 20:54; Admin Dose 650 MG; Start 09/06/16 at 23:30 Acetaminophen/ Hydrocodone Bitart ([place] (5/325)) 1 tab Q6H PRN PO PAIN LEVEL 4 -6 Last administered on 09/08/16 08:07; Admin Dose 1 TAB; Start 09/06/16 at 23: 30 Morphine Sulfate (morphine) 2 mg Q4H PRN IV PAIN LEVEL 7-10; Start 09/06/16 at 23:30 Docusate Sodium (Colace) 100 mg Q12H PRN PO CONSTIPATION; Start 09/06/16 at 23: 30 Magnesium Hydroxide (Milk Of Mag) 30 ml DAILY PRN PO CONSTIPATION; Start at 23:30 Bisacodyl (Dulcolax Supp) 10 mg DAILY PRN [place] CONSTIPATION; Start 09/06/16 at 23 :30 Famotidine (Pepcid) 20 mg Q12 PO Last administered on 09/08/16 08:07; Admin Dose 20 MG; Start 09/07/16 at 09:00 Penicillin V Potassium (Penicillin V K) 500 mg Q6 PO Last administered on 14:03; Admin Dose 500 MG; Start 09/07/16 at 18:00 John Paul Aldana DO Sep 08, 2016 14:35
--- NOTE | 2016-09-08 14:40 | PN ---
Date/Time of Note Date/Time of Note DATE: 09/08/16 TIME: 14:21 Assessment/Plan VTE Prophylaxis VTE Prophylaxis Intervention: SCD's Lines/Catheters IV C[facility]ter [facility]from [facility] Saline Lock Urinary Cath still in place: No Assessment/Plan Assessment/Plan 81-year-old male with: 1. Possibly presyncopal episodes. It is unclear if this is due to orthostasis. Negative orthostasis Pacer OK per Cardio Cardiac enzymes are negative x3. Appreciate cardiology recs D/c home today. 2. Nonobstructive coronary artery disease, apparently confirmed on angiogram in 2014. Continue current medications; however, his amiodarone and his carvedilol are on hold for now. 3. Cardiomyopathy, ejection fraction of 25%. Continue current medications. 4. Sick sinus syndrome, status post pacemaker. Resume Amiodarone Follow up with Cardiology outpatient within 1 week 5. Chronic obstructive pulmonary disease. Continue outpatient medication along with nebulizer treatment as needed. 6. Peripheral vascular disease. Continue antiplatelet therapy. Carotid Dopplers are negative. 7. Benign prostatic hypertrophy. Continue medication. 8. Hyperlipidemia. Continue medications. 9. Osteoporosis. Continue Fosamax. 10. Status post oral surgery. Continue his penicillin 500 mg IV q. 6 hours. Prophylaxis: Sequential compression devices to lower extremities for DVT prophylaxis, and Pepcid for GI prophylaxis. DISPOSITION: D/c home today with outpatient follow up with Cardiology. Subjective 24 Hr Interval Summary Free Text/Dictation Patient feels better HR stable and A paced VSS and labs wnl D/home today Exam/Review of Systems Vital Signs Vitals Vital Signs Date Time Temp Pulse Resp B/P Pulse Ox O2 Delivery O2 Flow Rate FiO2 09/08/16 14:14 Nasal Cannula 2.0 09/08/16 12:26 50 09/08/16 11:15 98.0 20 106/53 98 Intake and Output 09/07/16 09/07/16 09/08/16 15:00 23:00 07:00 Intake Total 360 ml Output Total 575 ml 850 ml Balance -215 ml -850 ml Exam Constitutional: alert, oriented, well developed Respiratory: clear to auscultation, normal air movement Cardiovascular: nl pulses, regular rate and rhythm Gastrointestinal: non-tender, soft Musculoskeletal: nl extremities to inspection Extremities: normal pulses, other (no edema, clubbing or cyanosis ) Neurological: BLOOD OR BLOOD BANK TECHNICIAN II-XII intact, nl mental status, nl speech, other (strength at baseline ) Results Result Diagram: 09/08/16 0600 09/08/16 0600 Results 24 hrs Laboratory Tests Test 09/08/16 06:00 White Blood Count 5.5 Red Blood Count 3.80 L Hemoglobin 11.0 L Hematocrit 36.6 L Mean Corpuscular Volume 96.3 Mean Corpuscular Hemoglobin 28.9 L Mean Corpuscular Hemoglobin Concent 30.1 L Red Cell Distribution Width 13.9 Platelet Count 107 L Mean Platelet Volume 11.9 H Neutrophils % 74.2 Lymphocytes % 16.5 Monocytes % 6.5 Eosinophils % 2.0 Basophils % 0.4 Nucleated Red Blood Cells % 0.0 Neutrophils # 4.1 Lymphocytes # 0.9 Monocytes # 0.4 Eosinophils # 0.1 Basophils # 0.0 Nucleated Red Blood Cells # 0.0 Sodium Level 142 Potassium Level 4.5 Chloride Level 104 Carbon Dioxide Level 36 H Anion Gap 7 L Blood Urea Nitrogen 17 Creatinine 0.91 Glucose Level 104 Calcium Level 9.4 Phosphorus Level 3.6 Magnesium Level 2.2 Medications Medications Current Medications Aspirin (Halfprin) 81 mg DAILY PO Last administered on 09/08/16 08:06; Admin Dose 81 MG; Start 09/07/16 at 09:00 Clopidogrel Bisulfate (plaVIX) 75 mg DAILY PO Last administered on 09/08/16 08 :07; Admin Dose 75 MG; Start 09/07/16 at 09:00 Finasteride (Proscar) 5 mg DAILY PO Last administered on 09/08/16 08:07; Admin Dose 5 MG; Start 09/07/16 at 09:00 Magnesium Oxide (Mag-Ox 400) 400 mg DAILY PO Last administered on 09/08/16 08: 07; Admin Dose 400 MG; Start 09/07/16 at 09:00 Tamsulosin HCl (Flomax) 0.4 mg BID PO Last administered on 09/08/16 08:07; Admin Dose 0.4 MG; Start 09/07/16 at 09:00 Salmeterol Xinafoate/ Fluticasone (Advair 250/50 Diskus) 1 inh BID INH Last administered on 09/08/16 08:06; Admin Dose 1 INH; Start 09/07/16 at 09:00 Ondansetron HCl (Zofran Inj) 4 mg Q6H PRN IV NAUSEA AND/OR VOMITING; Start at 23:30 Nitroglycerin (Nitroglycerin (Sl Tab) 0.4 Mg) 1 tab Q5M PRN SL CHEST PAIN; Start 09/06/16 at 23:30 Acetaminophen (Tylenol Tab) 650 mg Q6H PRN PO PAIN LEVEL 1-3 OR FEVER Last administered on 09/07/16 20:54; Admin Dose 650 MG; Start 09/06/16 at 23:30 Acetaminophen/ Hydrocodone Bitart ([place] (5/325)) 1 tab Q6H PRN PO PAIN LEVEL 4 -6 Last administered on 09/08/16 08:07; Admin Dose 1 TAB; Start 09/06/16 at 23: 30 Morphine Sulfate (morphine) 2 mg Q4H PRN IV PAIN LEVEL 7-10; Start 09/06/16 at 23:30 Docusate Sodium (Colace) 100 mg Q12H PRN PO CONSTIPATION; Start 09/06/16 at 23: 30 Magnesium Hydroxide (Milk Of Mag) 30 ml DAILY PRN PO CONSTIPATION; Start at 23:30 Bisacodyl (Dulcolax Supp) 10 mg DAILY PRN [place] CONSTIPATION; Start 09/06/16 at 23 :30 Famotidine (Pepcid) 20 mg Q12 PO Last administered on 09/08/16 08:07; Admin Dose 20 MG; Start 09/07/16 at 09:00 Penicillin V Potassium (Penicillin V K) 500 mg Q6 PO Last administered on 14:03; Admin Dose 500 MG; Start 09/07/16 at 18:00 REGINALD HAYNES Sep 08, 2016 14:31
--- NOTE | 2016-09-08 14:43 | PDOCDIS ---
Discharge Instructions CONDITION Patient Condition: Stable HOME CARE INSTRUCTIONS: Special Diet: Cardiac ACTIVITY: Activity Restrictions: Slowly Increase Activity FOLLOW UP/APPOINTMENTS Appointments Follow up with PCP within 1 week Follow up with Cardiology within 1 to 2 weeks REGINALD HAYNES Sep 08, 2016 14:42
[2016-09-08] MEDS ORDERED: PENI-36 PO (14:45)
[2016-09-08] MEDS ORDERED: CARV3.1260 PO (14:54)
--- NOTE | 2016-09-08 15:43 | RADRPT ---
Vent Rate: 60 bpm RR Interval: 0 msec VA Interval: 224 msec QRS Duration: 164 msec QT Interval: 498 msec QTC Interval: 498 msec P-R-T [place]: 49 - 99 - 41 degrees Electronic atrial pacemaker Right bundle branch block Abnormal ECG Electronically Signed By: John Paul Aldana [id number]
== END 2016-09-08 18:00 | disposition home or self-care (01) ==
LOC: E/R 19:23 → TEL 23:12
PROVIDERS: ADMIT Internal Medicine; ATTEND Internal Medicine
DX: R53.1 Weakness (principal); I25.10 Atherosclerotic heart disease of native coronary artery without angina pectoris; I42.9 Cardiomyopathy, unspecified; I49.5 Sick sinus syndrome; J44.9 Chronic obstructive pulmonary disease, unspecified; I11.0 Hypertensive heart disease with heart failure; I50.9 Heart failure, unspecified; I73.9 Peripheral vascular disease, unspecified; N40.0 Benign prostatic hyperplasia without lower urinary tract symptoms; E78.5 Hyperlipidemia, unspecified; M81.0 Age-related osteoporosis without current pathological fracture; E11.9 Type 2 diabetes mellitus without complications; I48.91 Unspecified atrial fibrillation; Z95.0 Presence of cardiac pacemaker; Z79.82 Long term (current) use of aspirin; Z79.02 Long term (current) use of antithrombotics/antiplatelets
CPT/HCPCS: 36415; 70450; 71010; 80048; 80053; 81003; 82550; 82553; 82962; 83735; 84100; 84439; 84443; 84484; 85025; 85610; 85730; 93005; 93880; 96360; 96361; 99285; G0378; J0630; J7040